=== PATIENT | male | born 1960 | race American Indian/Alaskan Native ===

== ENCOUNTER 2018-05-10 17:02 | Emergency (ER) | payer OTHER ==
--- NOTE | 2018-05-10 17:59 | C.PDOC ---
History Of Present Illness 57 year old male presents to the emergency department with complaints of dental pain and swelling for 5 days. Patient states that he does not have a dentist, and has not visited once since 2005. He states that he has been taking Aleve for the pain, with minimal relief. He states that he has "failing teeth". He denies fever, difficulty breathing or swallowing. Time Seen by Provider: 05/10/18 17:26 Chief Complaint (Nursing): Dental Pain History Per: Patient History/Exam Limitations: no limitations Onset/Duration Of Symptoms: Days (5) Current Symptoms Are (Timing): Still Present Quality: Positive for: "Pain" Past Medical History Reviewed: Historical Data, Nursing Documentation, Vital Signs Vital Signs: Last Vital Signs Temp 98.7 F 05/10/18 18:59 Pulse 89 05/10/18 18:59 Resp 20 05/10/18 18:59 BP 124/82 05/10/18 18:59 Pulse Ox 100 05/10/18 18:59 - Medical History PMH: Depression Denies: Chronic Kidney Disease Surgical History: No Surg Hx Family History: States: No Known Family Hx - Social History Hx Alcohol Use: No (former) Hx Substance Use: No - Immunization History Hx Tetanus Toxoid Vaccination: No Hx Influenza Vaccination: No Hx Pneumococcal Vaccination: No Review Of Systems Except As Marked, All Systems Reviewed And Found Negative. Constitutional: Negative for: Fever ENT: Positive for: Mouth Pain, Mouth Swelling Physical Exam - Physical Exam Appears: Non-toxic, No Acute Distress Skin: Warm, Dry Head: Atraumatic, Normacephalic Eye(s): bilateral: Normal Inspection, EOMI Nose: Normal Oral Mucosa: Moist Teeth: Tender To Palpation (R mandibular), Other (poor dentition) Gingiva: Swelling (tenderness, swelling and flucuance to the right mandibular area), Tender Throat: Normal, No Erythema, No Exudate, No Drooling Neck: Normal, Normal ROM, Supple Lymphatic: Normal Exam Chest: Symmetrical Cardiovascular: Rhythm Regular Respiratory: Normal Breath Sounds, No Rales, No Rhonchi, No Wheezing Neurological/Psych: Oriented x3, Normal Speech, Normal Cognition ED Course And Treatment O2 Sat by Pulse Oximetry: 95 (RA) Pulse Ox Interpretation: Normal Progress Note: Plan: Amoxil 500mg PO. Tylenol 650mg PO. Aspiration performed with copious purulent discharge. Pt was instructed to follow up with dentist in 1-2 days. REturn precautions given. Case discussed with Dr Cobian, agreed upon plan and treatment. - Incision & Drainage Of Abscess Anesthesia: Lidocaine 1% Prep Used: Sterile Water Procedure: Drained Pus (aspiration), Irrigated Cavity W/Saline Disposition - Disposition Referrals: [facility] [Outside] Disposition: HOME/ ROUTINE Disposition Time: 18:45 Condition: STABLE Additional Instructions: Follow up with your dentist in 2-5 days for further evaluation. Take medications as prescribed. Return to the emergency department at any time if symptoms persist or worsen. Prescriptions: Amoxicillin 875 mg PO BID #20 tablet Naproxen [Naprosyn] 1 tab PO BID PRN #20 tab PRN Reason: Pain Instructions: Tooth Abscess (DC) Forms: [employer] (Latvian) - Clinical Impression Clinical Impression: Dental abscess - PA / CHAIRMAN [employer] OFFIC[employer] / Resident Statement MD/DO has reviewed & agrees with the documentation as recorded. - Scribe Statement The provider has reviewed the documentation as recorded by the Scribe All medical record entries made by the Scribe were at my direction and personally dictated by me. I have reviewed the chart and agree that the record accurately reflects my personal performance of the history, physical exam, medical decision making, and the department course for this patient. I have also personally directed, reviewed, and agree with the discharge instructions and disposition.
[2018-05-10] MEDS ORDERED: Lidocaine 2% Inj (20ml) INFIL ONE (18:13)
[2018-05-10 19:01] VITALS: BP 124/82; PULSE 89; RESP 20; TEMP 98.7
[2018-05-10 21:45] VITALS: O2SAT 95
== END 2018-05-10 19:03 | disposition home or self-care (01) ==
LOC: C.ER 17:02
DX: K04.7 Periapical abscess without sinus (principal)